=== PATIENT | male | born 1985 | race Caucasian/White ===

== ENCOUNTER 2016-12-19 10:25 | Inpatient (IN) | payer OTHER, MEDICAID ==
[2016-12-19] VITALS (10 sets, daily range): BP systolic 91–121; BP diastolic 56–82; PULSE 47–80; RESP 12–17; O2SAT 93–99
[~2016-12-19] VITALS: Ht 154.9 cm; Wt 52.5 kg
[~2016-12-19 10:25] MED LIST: DOCU-41 PO; FELB400T2 PO; Glycopyrrolate 0.2 MG/ML 1mL Inj ONE; Ketamine 10 mg/mL 20 mL Inj ONE; LORA-302 PO; MULT-321 PO; POLY17PO6 PO; Propofol 10,000 mCg/mL 20 mL Inj ONE; RANI75TA21 PO; TOPI200T17 PO; fentaNYL-PF 50 mCg/mL 2 mL Inj ONE
[2016-12-19] MEDS ORDERED: LEVE500T22 PO ×2 (10:50→12:07)
[2016-12-19] MEDS ORDERED: CLOB10TA PO ×2 (10:51→12:07)
[2016-12-19] MEDS ORDERED: LAMO25TA PO ×2 (10:52→12:07)
--- NOTE | 2016-12-19 10:57 | ED.REPORT ---
HPI-General Illness Date of Service Dec 19, 2016 ED Provider: Jean Mac MD Patient is a 31 year old male with a hx of Downs syndrome, seizures, and gastric ulcers who presents to the ED via EMS complaining of vomiting onset last night. Per mother his vomit had a red tinge to it. He has been unable to keep down his seizure medications including his 4 night-time doses last night. His medication was re-dosed last night and vomited again. Mother reports that he commonly has episodes of dysphagia the required endoscopies and is worried that when he was eating last night he got something stuck in his throat. Per mother, he is not experiencing fever, trouble breathing, or any other symptoms. Nursing Notes Stated Complaint: ONGOING VOMITING Chief Complaint: Male Abdominal Pain Nursing Notes Reviewed: Yes Allergies: Coded Allergies: metoclopramide (Unverified Allergy, Severe, dystonia, 12/19/16) promethazine (Unverified Allergy, Severe, dystonia, 12/19/16) valproic acid (Unverified Allergy, Severe, thrombocytopenia, 12/19/16) Uncoded Allergies: PLASTIC MEDICAL TAPE (Allergy, Severe, Hives, 09/09/14) SULFA (Adverse Reaction, Intermediate, HIVES WITH HEADS, 01/19/09) Sulfa (Adverse Reaction, Intermediate, HIVES WITH HEADS, 11/04/03) Scheduled Clobazam (Onfi) 10 Mg Tablet 10 MG PO BID Clobazam (Onfi) 10 Mg Tablet 10 MG PO am Lamotrigine (Lamotrigine) 25 Mg Tablet 25 MG PO BID Lamotrigine (Lamotrigine) 25 Mg Tablet 50 MG PO BID Levetiracetam ER (Keppra XR) 500 Mg Tablet 1,500 MG PO BID Levetiracetam ER (Keppra XR) 500 Mg Tablet 1,500 MG PO BID Multivit with Calcium,Iron,Min (Maximum Daily Multivitamin) 1 Each Tablet 1 EACH PO daily Polyethylene Glycol 3350 (Miralax) 17 Gm Powd.pack 17 GM PO every other day Topiramate (Topamax) 200 Mg Tablet 200 MG PO BID Topiramate (Topiramate) 200 Mg Tablet 200 MG PO BID Scheduled PRN Docusate Sodium (Colace) 100 Mg Capsule 100 MG PO every other day PRN PRN For Constipation General Time Seen by MD: 10:52 Chief Complaint Vomiting Hx Obtained From: Other family... (Mother) Arrived By: Ambulance Sudden in Onset?: Yes Onset Occurred: 5 - 8 hours ago Symptom Duration: Since onset Past Medical History Past Medical History Notes: Neurologist: Dr. 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 Physical Exam Vital Signs Vital Signs Date Time Temp Pulse Resp B/P Pulse Ox O2 Delivery O2 Flow Rate FiO2 12/19/16 13:15 50 12 91/56 99 Room Air 12/19/16 10:33 36.8 80 15 120/80 98 Room Air Initial VS: Reviewed, Vital signs normal Head / Eyes: Atraumatic, Normocephalic Neck: Full range of motion Respiratory: No respiratory distress Cardiovascular: Regular rate & rhythm Abdomen / GI: Soft, Non-tender Skin: Warm, Dry Psychiatric: Mood/affect normal, Behavior normal General/Constitutional: Awake, Alert Neurologic: No motor deficits Per mother, pt is at baseline Interpretation & Diagnostics Lab Results Interpretation Result Diagram: 12/19/16 1135 12/19/16 1216 Test 12/19/16 11:35 12/19/16 12:16 White Blood Count 8.4th/mm3 (3.8-10.1) Red Blood Count 4.77mil/mm3 (4.40-5.80) Hemoglobin 15.7g/dL (13.8-17.2) Hematocrit 44.7% (41.0-50.0) Mean Corpuscular Volume 93.7fL (81-100) Mean Corpuscular Hemoglobin 32.9pg (27.0-35.0) Mean Corpuscular Hemoglobin Concent 35.1% (32.0-37.0) Red Cell Distribution Width 13.1% (12.3-15.4) Platelet Count 116bil/L (150-400) Neutrophils (%) (Auto) 78.1% (40-74) Lymphocytes (%) (Auto) 13.1% (14-46) Monocytes (%) (Auto) 6.1% (4-12) Eosinophils (%) (Auto) 2.3% (0-5) Basophils (%) (Auto) 0.2% (0-3) Sodium Level 142mEq/L (134-144) Potassium Level 4.1mEq/L (3.5-5.2) Chloride Level 105mEq/L (97-108) Carbon Dioxide Level 27mmol/L (18-29) Blood Urea Nitrogen 23mg/dL (6-20) Creatinine 0.85mg/dL (0.76-1.27) Estimat Glomerular Filtration Rate 113mL/min (>59) Glucose Level 98mg/dL (60-99) Calcium Level 8.9mg/dL (8.5-10.1) Magnesium Level 2.2mg/dL (1.6-2.6) Total Bilirubin 0.3mg/dL (0.0-1.2) Aspartate Amino Transf (AST/SGOT) 25U/L (0-50) Alanine Aminotransferase (ALT/SGPT) 49U/L (0-44) Alkaline Phosphatase 132U/L (25-150) Total Protein 6.4g/dL (6.4-8.4) Albumin 4.2g/dL (3.4-5.0) Lipase 22U/L (13-60) X-Ray Chest Interpretation Chest Xray Interpretation: IMPRESSION: Sternotomy wires, heart size at the upper limits, no pneumonia seen, no aspiration identified. No CHF found. Dictated by: Lorenzo Barnes M.D. on 12/19/2016 at 13:08 Approved by: Lorenzo Barnes M.D. on 12/19/2016 at 13:09 View: Portable, 1 view Interpretation / Wet Read by: Interpret - Radiologist Re-Eval/Medical Decision Time of Eval: 11:11 Re-Evaluation/Progress Note: Rechecked pt. Discussed plan for medication administration and consult with [place]. Mother asked about possibility of NG tube. All questions addressed at this time. Time of Eval: 13:34 Re-Evaluation/Progress Note: Rechecked pt. Discussed plan for enoscopy. Patient's mother understands and agrees with plan. All questions addressed at this time. Consultation #1: Call Returned at: 11:07 Note: Discussed pt's case with Dr. Rashi ramos/ [facility] neurology. Onfi can be crushed and put under his tongue. Keppra can be given IV. Consultation #2: Referral / Consult Name: Hunter Swanson MD Call Returned at: 13:24 Under Cutter: Will see patient, Agrees with eval, Agrees with plan Note: Discussed pt's case with GI. Will see pt and scope him. Counseled Regarding: Diagnosis, Lab results, Other (Need for EGD ) Discharge & Departure Primary Impression: Dysphagia Dysphagia type: unspecified Qualified Code: R13.10 - Dysphagia, unspecified Additional Impressions: Vomiting Vomiting type: unspecified Vomiting Intractability: unspecified Nausea presence: unspecified Qualified Code: R11.10 - Vomiting, unspecified Epilepsy Epilepsy type: unspecified Intractability: not intractable Status epilepticus: without status epilepticus Qualified Code: G40.909 - Epilepsy, unspecified, not intractable, without status epilepticus Disposition: ADMITTED TO HOSPITAL Discharge Condition All VS Reviewed: Yes Condition: Stable Referrals: Betzy Gilliam MD (PCP) Scribe Attestation Portions of this note were transcribed by Christopher Quinteros. I, Dr. Mac personally performed the history, physical exam and medical decision-making; I reviewed and confirmed the accuracy of the information in the transcribed note. Signed by: Naomi Agiular, 12/19/16 copies to: Betzy Gilliam MD, Kirk H MD Dec 19, 2016 10:57 CHRISTOPHER QUINTEROS Dec 19, 2016 11:23
[2016-12-19] MEDS ORDERED: levETIRAcetam Inj 1,000 MG in IV Premix 1 EACH IV ONE (11:15)
[2016-12-19 11:59] LABS: BASOPHILS % (AUTO) 0.2 % (0-3); EOSINOPHILS % (AUTO) 2.3 % (0-5); MONOCYTES % (AUTO) 6.1 % (4-12); Mean Corpuscular Hemoglobin 32.9 pg (27.0-35.0); Mean Corpuscular Volume 93.7 fL (81-100); NEUTROPHILS % (AUTO) 78.1 % (40-74); Platelet Count 116 bil/L (150-400)
[2016-12-19] MEDS ORDERED: TOPI200T7 PO (12:07)
--- NOTE | 2016-12-19 13:12 | DRSVH ---
PROCEDURE: X-RAY CHEST ONE VIEW, PORTABLE ([id number]) INDICATIONS: vomiting TECHNIQUE: One view of the chest was acquired. COMPARISON: [facility], CR, CHEST 2VW, 03/21/2008, 13:26. [facility], RG, C HEST 2VW, 03/17/2004, 16:59. FINDINGS: Surgical changes and devices: Surgical sternotomy wires appear present over the midline of the chest, previously present in this young patient. Lungs and pleura: No pleural effusions or pneumothorax. Lungs are clear. Mediastinum: Mediastinal contours appear normal. Heart size is mildly enlarged. Bones and chest wall: No suspicious bony lesions. Overlying soft tissues appear unremarkable. IMPRESSION: Sternotomy wires, heart size at the upper limits, no pneumonia seen, no aspiration identi fied. No CHF found. Dictated by: Lorenzo Barnes M.D. on 12/19/2016 at 13:08 Approved by: Lorenzo Barnes M.D. on 12/19/2016 at 13:09
[2016-12-19 13:14] LABS: Magnesium 2.2 mg/dL (1.6-2.6)
--- NOTE | 2016-12-19 14:59 | PCM.HPMED ---
Subjective Date of Service Dec 19, 2016 Primary Provider: Admitting Physician: Primary Care Physician: Betzy Gilliam MD Attending Physician: Chief Complaint: Vomiting History of Present Illness: Gastroenterology H&P. Mr. Bong Alonso is a 31 year old gentleman with a past medical history significant for Downs syndrome, Epilepsy, Chronic constipation, report of prior gastric ulcers via EGD in 2013 at [facility] in [place], ASD repair in 2006, Esophageal dysmotility with recurrent episodes of self resolving food impactions , who presents to the ED via EMS, accompanied by his mother with complaints of vomiting that started roughly around 930 pm 12/18/16. She states patient received 630 medications, ate a late dinner around 9pm. Shortly thereafter patient showed his typical signs of dysphagia. Patients mother was advised to re -administer evening medications, give warm coca-cola, which she did and patient vomited once again. Patient was stable overnight, but vomited once again with morning orange juice and medications. They have a long history of epilepsy and 5 prior events of status epilepticus, and recurrent esophageal impactions and for fear of recurrence of status, they decided to come the the ED. Patients mother reports patient is non-verbal, doesn't chew food well and also has esophageal dysmotility which has lead to a very long history of roughly 3-4 times per month of "food getting caught" and the normal sequela of hiccups, gagging, coughing then vomit, or if noticed soon enough, administration of warm coca-cola, which the patients mother states is "always effective." Patients mother is very concerned that Bong may go into Status epilepticus if he doesn't receive the anti-seizure medications. Per mother his most recent vomit had bright red blood streaks. Per mother, he is not experiencing fever, trouble breathing, oral edema, diarrhea, or been in contact with sick contacts. Review of Systems: A comprehensive review of systems was conducted with the patient's mother and found to be negative except as above in the History of Present Illness. Allergies Coded Allergies: metoclopramide (Unverified Allergy, Severe, dystonia, 12/19/16) promethazine (Unverified Allergy, Severe, dystonia, 12/19/16) valproic acid (Unverified Allergy, Severe, thrombocytopenia, 12/19/16) Uncoded Allergies: PLASTIC MEDICAL TAPE (Allergy, Severe, Hives, 09/09/14) SULFA (Adverse Reaction, Intermediate, HIVES WITH HEADS, 01/19/09) Sulfa (Adverse Reaction, Intermediate, HIVES WITH HEADS, 11/04/03) Home Medications Scheduled Clobazam (Onfi) 10 Mg Tablet 10 MG PO BID Clobazam (Onfi) 10 Mg Tablet 10 MG PO am Lamotrigine (Lamotrigine) 25 Mg Tablet 25 MG PO BID Lamotrigine (Lamotrigine) 25 Mg Tablet 50 MG PO BID Levetiracetam ER (Keppra XR) 500 Mg Tablet 1,500 MG PO BID Levetiracetam ER (Keppra XR) 500 Mg Tablet 1,500 MG PO BID Multivit with Calcium,Iron,Min (Maximum Daily Multivitamin) 1 Each Tablet 1 EACH PO daily Polyethylene Glycol 3350 (Miralax) 17 Gm Powd.pack 17 GM PO every other day Topiramate (Topamax) 200 Mg Tablet 200 MG PO BID Topiramate (Topiramate) 200 Mg Tablet 200 MG PO BID Scheduled PRN Docusate Sodium (Colace) 100 Mg Capsule 100 MG PO every other day PRN PRN For Constipation PMH Down syndrome Epilepsy Status Epilepticus x5 Esophageal dysmotility Chronic constipation Surgical History ASD repair 1997 Family History mother - Severe GERD Social History Hx Alcohol Use: No Hx Substance Use: No Hx Tobacco Use: No Exam Vital Signs Vital Sign - Last Date Time Temp Pulse Resp B/P Pulse Ox O2 Delivery O2 Flow Rate FiO2 12/19/16 13:15 50 12 91/56 99 Room Air 12/19/16 10:33 36.8 Exam General: <iddle aged gentleman, sitting in bed, with features of Down syndrome. No acute distress, well-developed, well-nourished, HEENT: Normocephalic, atraumatic. External ears without defect. Pupils equal, round, and reactive to light and accommodation. Anicteric sclerae, moist conjunctivae, and no lid lag. Oropharynx free of erythema and cobble stoning with moist mucosa. Glossal protrusion, with very mild signs of salivation. No signs of angioedema. Neck: Supple with full range of motion. No jugular venous distension. No bruits. No lymphadenopathy or thyromegaly. Cardiovascular: Regular rate and rhythm with slight flow murmur, no rubs, or gallops appreciated Pulmonary: Clear to auscultation bilaterally with no crackles, wheezes, or rhonchi. Normal respiratory effort with no use of accessory muscles. Abdomen: Bowel tones present. Soft, nontender, nondistended. No hepatosplenomegaly or masses appreciated. Extremities: No clubbing, cyanosis, edema, or lymphadenopathy appreciated. Skin: Normal temperature, turgor, and texture; no rash, ulcers, or subcutaneous nodules appreciated. Neurological: Unable to determine due to patients mental conditions. Psychiatric: Unable to determine due to patients mental conditions. Lab and Diagnostics Result Diagram: 12/19/16 1135 12/19/16 1216 Assessment & Plan Mr. Bong Alonso is a 31 year old gentleman with a past medical history significant for Downs syndrome, Epilepsy, Chronic constipation, report of prior gastric ulcers via EGD in 2013 at [facility], ASD repair in 2006, Esophageal dysmotility with recurrent episodes of self resolving food impactions , who presents to the ED via EMS with concerns of non-resolving esophageal impaction and concerns of under-dosing of anti-seizure medications. - High likelihood of esophageal impaction, Plan for EGD and dis-impaction. Pain Evaluation: Adequate Pain Control Attending Statement Patient seen and examined. Agree with assessment and plan as described by Dr Smith. MARKIE SMITH DO Dec 19, 2016 14:59 Hunter Swanson MD Dec 19, 2016 21:50 MARKIE SMITH DO Dec 19, 2016 14:59
[2016-12-19] MEDS ORDERED: Dexamethasone 4 mg/mL Inj ONE (15:00)
[2016-12-19] MEDS ORDERED: Glycopyrrolate 0.2 MG/ML 1mL Inj ONE (15:00)
[2016-12-19] MEDS ORDERED: Atropine 0.4 mg/mL Inj ONE (15:00)
[2016-12-19] MEDS ORDERED: EPHEDrine/NS 5 mg/mL 5 mL Syringe ONE (15:00)
[2016-12-19] MEDS ORDERED: Neostigmine 1 mg/mL 10 mL Inj ONE (15:00)
[2016-12-19] MEDS ORDERED: Ondansetron 2 mg/mL 2 mL Inj ONE (15:00)
[2016-12-19] MEDS ORDERED: Rocuronium 10 mg/mL 5 mL Inj ONE (15:00)
[2016-12-19] MEDS ORDERED: Lactated Ringer's 1,000 ML IV ONE ×4 (16:20→21:45)
--- NOTE | 2016-12-19 19:21 | DRSVH ---
PROCEDURE: X-RAY KUB ([id number]) INDICATIONS: foregin body, TECHNIQUE: One view of the abdomen acquired. COMPARISON: [facility], , CHEST 1 VIEW, 06/20/2016, 18:23. FINDINGS: Surgical changes and devices: None. Bowel: The stomach, small bowel and colon are diffusely gas-filled without luz dilatation to sugges t obstruction or ileus. Soft tissues: No suspicious abdominal calcifications. Visualized solid organ contours appear normal in size. No unexpected radiopaque foreign bodies. Bones: No suspicious bony lesions. IMPRESSION: 1. No unexpected radiopaque foreign bodies. 2. Diffuse gaseous distention of the stomach and the bowel without findings to suggest ileus or obstr uction. Dictated by: Cele June M.D. on 12/19/2016 at 19:17 Approved by: Cele June M.D. on 12/19/2016 at 19:19
[2016-12-19] MEDS ORDERED: Bupivacaine-MPF 0.5% 30 mL Inj INFILTRATE ONE (19:30)
[2016-12-19] MEDS ORDERED: Lactated Ringer's 1,000 ML IV SCH (19:50)
[2016-12-19] MEDS ORDERED: Lactated Ringer's 500 ML IV PRN (19:50)
[2016-12-19] MEDS ORDERED: Ondansetron 2 mg/mL 2 mL Inj IVPUSH PRN ×2 (19:50→21:10)
[2016-12-19] MEDS ORDERED: Phenylephrine 10,000 mCg/mL Inj IVPUSH PRN (19:50)
[2016-12-19] MEDS ORDERED: fentaNYL-PF 50 mCg/mL 2 mL Inj IVPUSH PRN (19:50)
[2016-12-19] MEDS ORDERED: HYDROmorphone 1 mg/mL Inj IVPUSH PRN (19:50)
[2016-12-19] MEDS ORDERED: EPHEDrine Sulfate 50 mg/mL Inj IVPUSH PRN (19:50)
--- NOTE | 2016-12-19 19:50 | PCM.HPANE ---
Patient Data Date of Service: Dec 19, 2016 Surgeon Admitting Provider: Attending Provider:Hunter Swanson MD Primary Care Physician:Steven Jones MD Other Provider: Reason for Visit Ongoing Vomiting Ht/WT & BMI Height (Feet): 5 Height (Inches): 11 Weight (Kilograms): 51.71 Body Mass Index 22.00 Allergies Coded Allergies: metoclopramide (Unverified Allergy, Severe, dystonia, 12/19/16) promethazine (Unverified Allergy, Severe, dystonia, 12/19/16) valproic acid (Unverified Allergy, Severe, thrombocytopenia, 12/19/16) Uncoded Allergies: PLASTIC MEDICAL TAPE (Allergy, Severe, Hives, 09/09/14) SULFA (Adverse Reaction, Intermediate, HIVES WITH HEADS, 01/19/09) Sulfa (Adverse Reaction, Intermediate, HIVES WITH HEADS, 11/04/03) Past Anesthesia History Anesthesia History: Denies:: Anesthesia Reactions, Fam Anesthesia Reaction, Fam Malignant Hypertherm, Malignant Hyperthermia Diabetes History Hx Diabetes?: No MRSA MRSA: No Medications Hypertension Medication: No Home Meds Incl Beta Kaushal: No Reported Medications Topiramate 200 Mg [id number] Mg PO BID Ref 0 12/19/16 Clobazam (Onfi)10 Mg Dsgnae91 Mg PO am seizures 12/19/16 Lamotrigine 25 Mg Sofrou73 Mg PO BID Ref 0 12/19/16 Levetiracetam ER (Keppra XR)500 Mg Tablet1,500 Mg PO BID 12/19/16 Lamotrigine 25 Mg Xaorth26 Mg PO BID Ref 0 12/19/16 Clobazam (Onfi)10 Mg Dshewx12 Mg PO BID 12/19/16 Levetiracetam ER (Keppra XR)500 Mg Tablet1,500 Mg PO BID 12/19/16 Polyethylene Glycol 3350 (Miralax)17 Gm Powd.pack17 Gm PO every other day 09/09/14 Docusate Sodium (Colace)100 Mg Goleils222 Mg PO every other day PRN For Constipation 30 Days Ref 0 09/09/14 Multivit with Calcium,Iron,Min (Maximum Daily Multivitamin)1 Each Tablet1 Each PO daily 09/09/14 Topiramate (Topamax)200 Mg Imrhes630 Mg PO BID 30 Days Ref 0 6/17/15 Discontinued Reported Medications Felbamate 400 Mg Mxzife442 Mg PO DAILY 09/09/14 Ranitidine (Zantac OTC)75 Mg Noewur56 Mg PO DAILY #1 PKG Ref 0 09/09/14 Lorazepam (Ativan)0.5 Mg Tablet0.5 Mg PO BID PRN For Anxiety Ref 0 09/09/14 History History of ENT Problems?: Yes HEENT History: Positive for:: Dysphagia Denture Type: None Teeth Condition: Within Normal Limits Hx of Heart Problems?: Yes Cardiovascular History: Denies:: Congestive Heart Failure Hypertension Other Cardiac History: ASD REPAIR Hx of Respiratory Problem?: Yes Respiratory History: Positive for:: Pneumonia Denies:: Tuberculosis Hx Neurologic Problems?: Yes Neurological History: Positive for:: Seizures Denies:: CVA Hx of GI Problems?: Yes Hx of Problems?: No Male Hx: Denies:: Prostate Problems Skin History: Denies:: History Skin Disorders? Hx Musculoskeletal Problems?: Yes Hx of Psycho/Social Problems?: No Hx Surgeries?: Yes (ASD REPAIR) Hx Any Other Health Problems?: Yes Other History: Positive for:: Hospitalization Denies:: Cancer History Blood Transfusions: Denies:: Blood Transfusions Hx Diabetes: No Hx Alcohol Use: NoHx Substance Use: NoHave You Smoked inLast 12 mo: No Stop/Bang Treated for Sleep Apnea?: No Do You Have a CPAP Machine?: No S-Snoring: Do You Snore Loudly: Yes T-Tired: feel tired, fatigued: No O-Obsered: Observed not breath: Yes P-Blood Pressure: treated: No B- Body Mass Index > 35 kg/m2: No A- Age over 50: No N- Neck Large Circumference: No G- Gender Male: Yes IRON Total Score: 3 IRON Risk Assessment: Low Risk, <3 Yes Risk Assessment Category Category 1A: Patient has history of documented sleep apnea, and HAS NOT received any narcotic, sedative or anesthesia administration during this stay. Category 1B: Patient has history of documented sleep apnea, and HAS received any narcotic , sedative or anesthesia administration during this stay Category 2: Patient has SUSPECTED Obstructive Sleep Apnea, and HAS received any narcotic , sedative or anesthesia administration during this stay. Category 3: Patient has SUSPECTED Obstructive Sleep Apnea and HAS NOT received narcotic, sedative or anesthesia administration during this stay. Category 4: Outpatient in Procedural Areas with known sleep apnea or who screen positive for High Risk via the STOP/BANG questionnaire. Exam Exam Vital Signs Vital Signs Date Time Temp Pulse Resp B/P Pulse Ox O2 Delivery O2 Flow Rate FiO2 12/19/16 16:05 47 16 107/62 97 Room Air 12/19/16 13:15 50 12 91/56 99 Room Air General Appearance: Alert, Other HEENT/AIRWAY: MP 1 Lungs: Clear to Auscultation Heart: Exam Unremarkable Additional Information large tongue. developmental delay Meds/Labs/Diagnostics Admission Meds Current Medications Levetiracetam 1000 mg/Premix 100 ml @ 400 mls/hr ONCE ONCE IV Last administered on 12/19/16 11:48; Start 12/19/16 at 11:15; Stop 12/19/16 at 11:29 ; Status DC Lactated Ringer's (Lr) 1,000 ml @ ud STK-MED ONCE IV Last administered on 12/19 16:20; Start 12/19/16 at 16:20; Stop 12/19/16 at 16:21; Status DC Labs Test 12/19/16 11:35 12/19/16 12:16 White Blood Count 8.4th/mm3 (3.8-10.1) Red Blood Count 4.77mil/mm3 (4.40-5.80) Hemoglobin 15.7g/dL (13.8-17.2) Hematocrit 44.7% (41.0-50.0) Mean Corpuscular Volume 93.7fL (81-100) Mean Corpuscular Hemoglobin 32.9pg (27.0-35.0) Mean Corpuscular Hemoglobin Concent 35.1% (32.0-37.0) Red Cell Distribution Width 13.1% (12.3-15.4) Platelet Count 116bil/L (150-400) Neutrophils (%) (Auto) 78.1% (40-74) Lymphocytes (%) (Auto) 13.1% (14-46) Monocytes (%) (Auto) 6.1% (4-12) Eosinophils (%) (Auto) 2.3% (0-5) Basophils (%) (Auto) 0.2% (0-3) Sodium Level 142mEq/L (134-144) Potassium Level 4.1mEq/L (3.5-5.2) Chloride Level 105mEq/L (97-108) Carbon Dioxide Level 27mmol/L (18-29) Blood Urea Nitrogen 23mg/dL (6-20) Creatinine 0.85mg/dL (0.76-1.27) Estimat Glomerular Filtration Rate 113mL/min (>59) Glucose Level 98mg/dL (60-99) Calcium Level 8.9mg/dL (8.5-10.1) Magnesium Level 2.2mg/dL (1.6-2.6) Total Bilirubin 0.3mg/dL (0.0-1.2) Aspartate Amino Transf (AST/SGOT) 25U/L (0-50) Alanine Aminotransferase (ALT/SGPT) 49U/L (0-44) Alkaline Phosphatase 132U/L (25-150) Total Protein 6.4g/dL (6.4-8.4) Albumin 4.2g/dL (3.4-5.0) Lipase 22U/L (13-60) Plan Impression Patient chart reviewed, patient interviewed and anesthestic plan with risks, benefits, and alternatives discussed, and informed consent obtained. NPO per Anesth. Guidelines: YesNo ASA Physical Status: ASA2 Plus Emergency Anesthetic Plan: GA Bene/Risks/Altern/Consents: Yes HP Complete Prior to Induction: Yes Gerardo Abreu MD Dec 19, 2016 19:49
--- NOTE | 2016-12-19 19:59 | ENDO ---
[address] [address] ENDOSCOPY PROCEDURE PATIENT: AFTAB MORALES : 1985 MR#: [id number] ADMIT: 12/19/2016 JOB ID: [id number] PRIMARY CARE PHYSICIAN: Steven Jones MD PROCEDURE: Esophagogastroduodenoscopy with foreign body removal, overtube placement, and distal esophageal dilatation. EQUIPMENT: GIF H 180 J. SEDATION: Monitored anesthesia as provided by Gerardo Abreu MD. COMPLICATIONS: None. INDICATIONS: This is a 31-year-old male with significant developmental delay, nonverbal, whose mom thinks suspects underlying pica. He has had challenges with foreign bodies numerous times over the years. Of late he has not been able to keep down any of his pills and we had suspicion that there was possibly a retained foreign body in the esophagus. EGD was therefore pursued. PROCEDURE INFORMATION: After the risks and benefits were explained to the patient's mom, verbal and written consent were obtained. The patient was placed into the left lateral decubitus position. Sedation was achieved. The scope was introduced into the mouth through the bite block and advanced into the esophagus. We encountered a large foreign body at about 30 cm from the incisors. The decision was made to back out and use an over tube to try and get all of this out. A standard Guardus overtube was successfully placed in the distal esophagus. We attempted to grasp this with the Haney net but it was simply too large. We used a standard polypectomy snare and, with several attempts at extracting this, we were finally able to bring up almost the entire piece by way of the overtube. There was an approximately 10-12 cm section of plastic and paper towel, along with some food debris, that was removed as cylindrical foreign body. We then were able to advance the scope down into the stomach, only to discover a much larger foreign body in the antrum. We shifted this out of the way using the snare. I passed the scope into the duodenum and I did not see any debris at this depth. Retroflexed views of the LES were unremarkable. We considered all of our options with this large irregular foreign body. The snare was not able to cut through this. We could not tell if this was tape with other more metallic substances within it or whether this was a plastic bag. However, with the snare fully deployed, it would not cut through and in some sections would not even bend any of the material. We considered using the rubber davenport to try and protect the esophagus. I passed the rubber davenport all the way down but we could not advance this through the mildly stenotic GE junction. We backed the scope back out and I then used the CRE 12-15 mm balloon. I did not really appreciate any obvious mucosal rent, nor any major dilatation effect. We once again could not advance the davenport through the GE junction. I up-sized to a 15-18 mm balloon and starting at 16.5 we dilated up to 18. After the balloon was deflated there was a considerable rent of approximately a cm in the distal esophagus through the GE junction. There was some brief moderate bleeding which all fairly rapidly spontaneously ceased. Complete hemostasis was evident. However, even with the 18 mm dilatation effect, it did not yield to the davenport covering the tip of the endoscope and I did not feel like I could safely advance it through. We therefore abandoned this and called the surgeon. Dr. Carpenter was kind enough to come up and visualize our clinical problem and he agreed that it looks like the patient needs to have a surgery to remove this rather larger irregular foreign body from the stomach. We thereafter removed the endoscope, after deflating the stomach. The patient tolerated the procedure quite well. It should be noted that when trying to place the davenport we had already removed the overtube. FINDINGS: 1. Duodenum: No retained foreign body. No pathology appreciated. Normal bile-stained mucosa. 2. Stomach: Large, perhaps 12 x 3 cm, irregular, slightly malleable, slightly firm foreign body retained within the stomach. This could not be safely removed. Even though we suspected at first that it was a plastic bag versus a role of balled up tape, it simply did not flex like one would expect with the snare, and I was quite concerned we would cause considerable esophageal trauma I attempted to drag this up forcefully all the way through per os. 3. Esophagus: There was mild to moderate GE junction stenosis, but no neoplastic effects evident. The foreign body in the esophagus was successfully removed by way of the overtube as described above. This appeared to be a combination of some espinal paper towel plus plastic and some food debris. This was more than a 10 cm cylindrical, packed in foreign body. See above. The mild to moderate stenosis at the GE junction was dilated up to 18 mm and there was a small rent at the GE junction with self-limited bleeding. There was some mild mucosal trauma induced by the overtube at the level of the UES but no sustained bleeding or significant laceration. ENDOSCOPIC DIAGNOSES: 1. Esophageal foreign body status post endoscopic relief. 2. Mild GEJ stenosis status post balloon dilatation to 18 mm. 3. Retained gastric foreign body. RECOMMENDATIONS: 1. Surgical consultation with Dr. Carpenter for therapeutic gastrostomy to remove this irregular foreign body from the stomach. 2. The patient will almost certainly need a medicine consult during this hospitalization considering the complexities of his antiseizure medication and the n.p.o. status that is going to result from surgery. 3. From a gastroenterology standpoint, the patient can start to advance his diet through liquids and smoothie to well chewed food, or at least whenever his baseline status allows, at the discretion of his surgical service. Please note: This was a complex procedure and procedure time was roughly 90 minutes or so.
[2016-12-19] MEDS ORDERED: HYDROmorphone 0.5 mg/0.5 mL iSecure Syringe IV PRN (21:10)
[2016-12-19] MEDS ORDERED: diphenhydrAMINE 25 mg Capsule PO PRN (21:10)
[2016-12-19] MEDS ORDERED: lamoTRIgine 25 mg Tablet PO SCH ×2 (21:15)
--- NOTE | 2016-12-19 21:29 | HP ---
[address] [address] HISTORY AND PHYSICAL PATIENT: AFTAB MORALES : 1985 MR#: [id number] ADMIT: 12/19/2016 JOB ID: [id number] DATE: 12/19/2016 CHIEF COMPLAINT/IDENTIFICATION: A 31-year-old male with ingested foreign body. HISTORY OF PRESENT ILLNESS: The patient is seen in the endoscopy suite with Dr. Swanson. History I have obtained is that he has a history of plica and swallowing foreign bodies. He has been vomiting for at least a day and Dr. Swanson has removed a very firm plastic foreign body from the esophagus. There is a residual foreign body in the stomach that appears too large and noncompressible to safely remove from the esophagus. We have had a discussion in the endoscopy suite regarding the best way to approach this, and it would seem a laparoscopic exploration with gastrotomy and foreign body removal is in the patient's best interest. PAST MEDICAL HISTORY: Severe developmental delay. Atrial septal defect status post surgical repair many years ago. History of seizure disorder. MEDICATIONS: 1. Keppra. 2. . 3. Topiramate. 4. Lamotrigine. Doses unknown. ALLERGIES: 1. SULFA. 2. VALPROIC ACID. 3. REGLAN. 4. PROMETHAZINE. 5. SOCIAL HISTORY: Lives with his mom. He says his mother is his durable power of health plan specialist. Mother and sister are present for the discussion. FAMILY HISTORY: Noncontributory. REVIEW OF SYSTEMS: Not obtainable. His baseline is by report is that he is nonverbal, and that his mother "reads him" but that the last time he was in the hospital to have his seizure medications adjusted, he had a very difficult time because it was a new hospital. PHYSICAL EXAMINATION: The patient is seen in the endoscopy suite, sedated. Vital signs recorded in the chart. Heart and lung exam per anesthesia. His abdomen is without surgical scars. LABORATORY DATA: White count is 8.4, hematocrit is 44.7, platelet count is 116. Chemistries are unremarkable except for a BUN of 23 and an ALT of 49. His lipase is 22. IMAGING: We did obtain a KUB that demonstrates what appears to be the foreign body in his stomach, none in the distal small bowel, but he does have a fair amount of small bowel and large bowel gas from his endoscopy. IMPRESSION AND PLAN: After a discussion with Dr. Swanson, we have recommended to the patient's mother that we go to the operating room for planned laparoscopy, gastrotomy with removal of foreign body and closure of the gastrotomy. We discussed the possibility of open surgery and findings of other foreign bodies requiring therapeutic intervention. She agrees to proceed. As the patient was heavily sedated for his endoscopy, Dr. Abreu of Anesthesia moved ahead with intubation as the operating room crew was coming in.
--- NOTE | 2016-12-19 21:34 | PCM.SURGPO ---
Immediate Operative Note Date of Surgery: Dec 19, 2016 Pre Operative Diagnosis Foreign body ingestion Post Operative Diagnosis Intragastric foreign body Procedure 1. Diagnostic laparoscopy 2. Gastrotomy with foreign body retrieval and gastrostomy closure Surgeon and Necktie Turner Surgeon: Arsen Carpenter MD Assistants: Sarah Gibson MD Findings 1. Plastic medical glove entangled into long, hardened bezoar in the gastric fundus Complications There were no periprocedural complications identified. Surgical Specimen Removed: Yes (Plastic glove) Specimen sent to Pathology: Yes Anesthetic Administered: GA Grafts, Implants: None Output, Estimated Blood Loss: 10 Blood Admin during surgery: No Sarah Gibson MD Dec 19, 2016 21:34
--- NOTE | 2016-12-19 21:34 | PCM.ANEP1 ---
Post Anesthesia PACU Phase 1 Assessment Vital Signs Vital Signs Date Time Temp Pulse Resp B/P Pulse Ox O2 Delivery O2 Flow Rate FiO2 12/19/16 16:05 47 16 107/62 97 Room Air Anesthetic Administered: GA Level of Alertness: Sleepy, easy to arouse Pain: No Nausea or Vomiting: No CV Function & Hydration Stable: Yes Airway Device: Oxygen Delivery: Room Air Lungs: Clear to Auscultation PACU Phase 2 Assessment Complications: Yes Follow up Care: N/A Patient Instructions Provided: N/A Gerardo Abreu MD Dec 19, 2016 21:34
--- NOTE | 2016-12-19 21:49 | OP ---
[address] [address] OPERATIVE REPORT PATIENT: AFTAB MORALES : 1985 MR#: [id number] ADMIT: 12/19/2016 JOB ID: [id number] DATE OF SURGERY: 12/19/2016 SURGEON: Arsen Carpenter MD and Dr. Sarah Gibson. PREOPERATIVE DIAGNOSIS(ES): Ingested foreign body. POSTOPERATIVE DIAGNOSIS(ES): Ingested foreign body. PROCEDURE: 1. Laparoscopic exploration with gastrotomy and removal of foreign body. 2. Closure of gastrotomy. INDICATIONS: A 31-year-old male with ingested foreign body. FINDINGS: Ingested foreign body, looks like an old plastic glove. PROCEDURE IN DETAIL: The patient brought to the operating room. General anesthetic had already been administered. Abdomen was prepped and draped in sterile fashion. We elected not to place a Smart catheter. SCDs were placed. The patient received perioperative Ancef. SCOAP protocol was followed. Surgical time-out was performed. We began with A periumbilical Veress needle followed by a 5 mm port and the abdomen was surveyed. There was no free fluid. There was gaseous distention of the small bowel and stomach. Orogastric tube was placed. We placed three additional ports, two for the glue wheel operator and one for liver retractor. On the anterior stomach in the body, we made a longitudinal gastrotomy approximately 3 cm with cautery. We were then able to hold open the stomach and could see the foreign body in the stomach. We removed it with minimal contamination of the stomach area and placed it in a bag and removed this through the right upper quadrant 10 mm incision without any intra-abdominal spillage. There was some contamination around the skin. We now replaced our ports, removed a couple pieces of foreign body and replaced some gel that had been exteriorized from the stomach into the stomach. We then closed the gastrotomy with interrupted 3-0 Vicryl with intracorporeal knot tying. Having satisfied ourselves that we had good primary closure, we then did a 2nd seromuscular layer with running 3-0 Vicryl. We now leak tested via gastrotomy closure and there was no sign of leak. We irrigated out the abdomen. Suctioned out all of our irrigation. Ports were removed and the 10 mm port was closed at the fascial level with interrupted Vicryl followed by subcuticular Monocryl after washing out the wounds. Dry dressings were applied. At the time of this dictation, the patient is awaking from anesthesia with planned admission.
--- NOTE | 2016-12-19 22:30 | PCM.CHPMED ---
Subjective Date of Service: Dec 19, 2016 Provider requesting consult: Arsen Carpenter MD Primary Physician: Admitting Physician: Hunter Swanson MD Primary Care Physician: Steven Jones MD Attending Physician: Hunter Swanson MD Chief Complaint: Chief Complaint: Dysphagia, Ingestion of Foreign Body History of Present Illness: Patient is a 31 y/o male with past medical history of Down Syndrome, Epilepsy, Constipation, Gastric Ulcers, and esophogeal dysmotility. Patient's mother reports that patient was showing his typical signs of dysphagia at around 2100. Patient has previous episodes of dysphagia and difficulty swallowing solid foods around 3-4 times per month. Patient has a history of status epilepticus and receives multiple medications to control his seizures with 5 prior events of status epilepticus. Patient was seen by GI and underwent laparoscopic exploration with gastrotomy and removal of foreign body (likely old plastic glove) and closure of gastrotomy. Surgery performed by Dr. Carpenter and Dr. Gibson. GI consult for medical management of home medications. Review of Systems: Constitutional: Denies: Chills, Fever, Malaise, Other, Sweats, Weakness Eyes: Denies: Blurred Vision, Conjunctive Inflammation, Double Vision, Eyelid Inflammation, Other, Pain, Redness, Vision Changes ENT: Denies: Dental Problems, Dysphagia, Ear Discharge, Ear Pain, Hoarseness, Membranes Dry, Nasal Congestion, Nose Discharge, Nose Pain, Other, Throat Pain, Tinnitus, Ulcers/Sores in Mouth Neck: Denies: Mass, Other, Pain, Swelling Cardiovascular: Denies: Chest Pain, Edema, Irregular Heart Rate, Other, Palpitations, Rapid Heart Rate, SOB on Exertion, SOB while laying flat Respiratory: Reports: Cough Gastrointestinal: Reports: Abdominal Pain, Vomiting Genitourinary: Denies: Change in Frequency, Decrease Urinary Output, Decrease Urinary Stream, Dysuria, Has burning or pain with urination, Hematuria, Hemodialysis, Incontinence, No burning or pain with urination, Nocturia, Other, Peritoneal Dialysis Reproductive Male: Denies: Erectile Dysfunction, Other, Sexually Active, Venereal Disease Musculoskeletal: Denies: Ankle Pain, Back Pain, Deformity, Knee Pain, Neck Pain , Other, Redness, Shoulder Pain, Swelling, Weakness Skin: Denies: Blisters, Bruising, Dry or Flakiness, Itching, Lesions, Other, Rash, Redness, Ulcers Neurological: Denies: Change in LOC, Change in Speech, Confusion, Difficulty Walking, Dizziness, Double Vision, Drooping Mouth, Incoordination, Localized Weakness, Numbness, Other, Seizures, Somnolence, Tremors, Vertigo Psychologic: Denies: Agitation, Anxiety, Depression, Insomnia, Other, PTSD- Post Traumatic Stress Disorder, Suicidal Thoughts Endocrine: Denies: Abnormal Hair Growth, Blood Glucose Review, Diaphoresis, Excessive Thirst, Intolerant to Cold, Intolerant to Heat, Other, Recent A1C, Urinating Frequently, Weight Gain Hematologic: Denies: Abnormal Bleeding, Bruising, Other Lymphatic: Denies: Adenopathy, Swollen Lymph Node Above Collarbone, Swollen Lymph Nodes in Neck, Tender Lymph Nodes Axillia, Tender Lymph Nodes Groin PMH Past Medical History Down syndrome Epilepsy Status Epilepticus x5 Esophageal dysmotility Chronic constipation Surgical History ASD repair 1996 Home Medications Clobazam (Onfi) 10 Mg Tablet 10 MG PO BID Clobazam (Onfi) 10 Mg Tablet 10 MG PO am Lamotrigine (Lamotrigine) 25 Mg Tablet 25 MG PO BID Lamotrigine (Lamotrigine) 25 Mg Tablet 50 MG PO BID Levetiracetam ER (Keppra XR) 500 Mg Tablet 1,500 MG PO BID Levetiracetam ER (Keppra XR) 500 Mg Tablet 1,500 MG PO BID Multivit with Calcium,Iron,Min (Maximum Daily Multivitamin) 1 Each Tablet 1 EACH PO daily Polyethylene Glycol 3350 (Miralax) 17 Gm Powd.pack 17 GM PO every other day Topiramate (Topamax) 200 Mg Tablet 200 MG PO BID Topiramate (Topiramate) 200 Mg Tablet 200 MG PO BID Allergies: Coded Allergies: metoclopramide (Unverified Allergy, Severe, dystonia, 12/19/16) promethazine (Unverified Allergy, Severe, dystonia, 12/19/16) valproic acid (Unverified Allergy, Severe, thrombocytopenia, 12/19/16) Uncoded Allergies: PLASTIC MEDICAL TAPE (Allergy, Severe, Hives, 09/09/14) SULFA (Adverse Reaction, Intermediate, HIVES WITH HEADS, 01/19/09) Sulfa (Adverse Reaction, Intermediate, HIVES WITH HEADS, 11/04/03) Family History Family History mother - Severe GERD Social History Hx Alcohol Use: NoHx Substance Use: NoHx Tobacco Use: No Exam Vital Signs Vital Sign - Last Date Time Temp Pulse Resp B/P Pulse Ox O2 Delivery O2 Flow Rate FiO2 12/19/16 21:40 36.2 57 13 121/82 96 Room Air General: No Acute Distress, Other (Awake) Head: Normal Eyes: PERRLA, EOMI Mouth: Lips, Mouth Normal Chest & Lungs: Chest Wall Normal, Clear to auscultation & percussion Breasts: Normal Cardiovascular: Exam Unremarkable Abdomen: Non-tender, Non-distended Musculoskeletal: Unremarkable Extremities: No cyanosis/clubbing/edma bilat, Normal bilaterally Neurological: Other (No focal deficit. Unable to cooperate with full neuro exam secondary to patient mental status) Lab and Diagnostics Labs Item Value Date Time Red Blood Count 4.77 mil/mm3 12/19/16 1135 Mean Corpuscular Volume 93.7 fL 12/19/16 1135 Mean Corpuscular Hemoglobin 32.9 pg 12/19/16 1135 Mean Corpuscular Hemoglobin Concent 35.1 % 12/19/16 1135 Red Cell Distribution Width 13.1 % 12/19/16 1135 Neutrophils (%) (Auto) 78.1 % H 12/19/16 1135 Lymphocytes (%) (Auto) 13.1 % L 12/19/16 1135 Monocytes (%) (Auto) 6.1 % 12/19/16 1135 Eosinophils (%) (Auto) 2.3 % 12/19/16 1135 Basophils (%) (Auto) 0.2 % 12/19/16 1135 Estimat Glomerular Filtration Rate 113 mL/min 12/19/16 1216 Calcium Level 8.9 mg/dL 12/19/16 1216 Magnesium Level 2.2 mg/dL 12/19/16 1216 Total Bilirubin 0.3 mg/dL 12/19/16 1216 Aspartate Amino Transf (AST/SGOT) 25 U/L 12/19/16 1216 Alanine Aminotransferase (ALT/SGPT) 49 U/L H 12/19/16 1216 Alkaline Phosphatase 132 U/L 12/19/16 1216 Total Protein 6.4 g/dL 12/19/16 1216 Albumin 4.2 g/dL 12/19/16 1216 Lipase 22 U/L 12/19/16 1216 Result Diagram: 12/19/16 1135 12/19/16 1216 X-Rays, CTs and MRIs PROCEDURE: X-RAY CHEST ONE VIEW, PORTABLE IMPRESSION: Sternotomy wires, heart size at the upper limits, no pneumonia seen , no aspiration identified. No CHF found. Dictated by: Lorenzo Barnes M.D. on 12/19/2016 at 13:08 PROCEDURE: X-RAY KUB IMPRESSION: 1. No unexpected radiopaque foreign bodies. 2. Diffuse gaseous distention of the stomach and the bowel without findings to suggest ileus or obstruction. Dictated by: Cele June M.D. on 12/19/2016 at 19:17 Assessment & Plan Assessment Patient is a 31 y/o male with past medical history of Down Syndrome, Epilepsy, Constipation, Gastric Ulcers, and esophogeal dysmotility. Patient's mother reports that patient was showing his typical signs of dysphagia at around 2100. Patient has previous episodes of dysphagia and difficulty swallowing solid foods around 3-4 times per month. Patient has a history of status epilepticus and receives multiple medications to control his seizures with 5 prior events of status epilepticus. Patient was seen by GI and underwent laparoscopic exploration with gastrotomy and removal of foreign body (likely old plastic glove) and closure of gastrotomy. Surgery performed by Dr. Carpenter and Dr. Gibson. GI consult for medical management of home medications. PLAN Seizure disorder, chronic, present on admission Patient seen and examined, in no acute distress, Will continue home anti- seizure medications tonight. I have replaced the patient's PO Keppra 500mg with an IV dose due to the size of the tablets and the patient's history of esophageal dysmotility. Can transition to full PO after clearance by GI. - Small sips and PO meds for tonight. - Giving night time dose of Keppra, Topomax, Onfi, and Lamotrigine. Spoke with pharmacy to confirm timing and dosing of home medications. Problems: Pain Evaluation: Adequate Pain Control Attending Statement The patient was seen and examined together with house staff on 12/19/2016 and I have added additional information to the note above. Tres Burk DO Dec 19, 2016 22:30 Maira Roque DO Dec 20, 2016 00:41
[2016-12-19] MEDS ORDERED: levETIRAcetam Inj 1,500 MG in Dextrose 5% 100 ML IV SCH (22:55)
[2016-12-19] MEDS: CLOBAZAM 10 MG PO SCH (23:20)
[2016-12-20] MEDS: D5 0.45% NaCl + KCl 20 mEq/L 1,000 ML IV SCH ×3 (00:05→23:49)
[2016-12-20 02:07] VITALS: BP 112/65; PULSE 78; RESP 16; O2SAT 96
--- NOTE | 2016-12-20 04:05 | NUR ---
Arrival/Shift summary Note Patient arrived to the room at 2150 in a gurney, accompanied by mother, and PACU staff. He was restless in bed, sitting up and changing position in bed makes some sounds but no verbal communication. He is alert, does not follow any commands and is unable to communicate if uncomfortable at baseline per mother. All vital signs stable, pt afebrile. Mother very concerned regarding missed seizure medications, MD and pharmacy notified and patient given meds per MD orders. He tolerated taking po meds with water well without any coughing or any signs of difficulty swallowing. Patient did not show any signs of nausea after taking meds. Pt remained in bed all shift, very restless and did not sleep all night. His mother reported that he is not used to being around other people except her and the sister. Patient on 1:1 all shift, seizure pads in place and IV's covered. Lap sites covered with small dressings, small amount of old drainage noted but no new drainage during the shift. Addendum: 12/20/16 at 0635 by JOEL MULTANI RN Pt continued to be restless this morning, and unable to sleep, given Tylenol IV x1. Pt remains awake, looks around and suck on his fingers.
[2016-12-20 06:03] VITALS: BP 101/60; PULSE 77; RESP 16; O2SAT 94
[2016-12-20] MEDS: Acetaminophen IV 1,000 MG in IV Premix 1 EACH IV PRN ×2 (06:28→17:26)
--- NOTE | 2016-12-20 06:31 | PCM.PNSURG ---
Subjective Date of Service: Dec 20, 2016 Date of Service: Dec 20, 2016 Visit Information: Reason for Visit Ongoing Vomiting Surgery/Surgery Date Post-Op Day # 1 Date of Admission: Dec 19, 2016 at 22:05 Hospital Day # 1 Subjective: Recovered well post operatively. Post operative fever to 38.2, not uncommon. Received evening doses of anti seizure medications and reviewed by hospitalist and pharmacy. Tolerating sips with medications. Appeared comfortable overnight per sitter. Patient is non verbal so difficult to know if in pain. Objective Vital Sign- Last 8 Hours Date Time Temp Pulse Resp B/P Pulse Ox O2 Delivery O2 Flow Rate FiO2 12/20/16 06:03 38.2 77 16 101/60 94 Room Air 12/20/16 02:07 36.7 78 16 112/65 96 Room Air Intake and Output- Last 8 Hour 12/20/16 Cumulative From/Thru 06:58 12/19/16 10:33 - 12/20/16 06:09 Intake Total 50 ml 2100 ml Output Total 10 ml Balance 50 ml 2090 ml Intake Oral 50 ml 50 ml IV Total 2050 ml Output Estimated Blood Loss 10 ml # Voids 1 1 # Bowel Movements 0 0 General: Alert, No Acute Distress Lungs: Other (Breathing comfortably on room air) Heart: Regular Rate/Rhythm Abdomen: Benign, Soft, Non-tender, Non-distended, Other (Incisions c/d/i) Catheters: None Result Diagram: 12/19/16 1135 12/19/16 1216 Assessment & Plan Impression 31 yo M with developmental delay and epilepsy with dysphagia and found to have foreign body ingestion s/p endoscopic retrieval of foreign body followed by diagnostic laparoscopy with gastrotomy and foreign body retrieval (hardened medical glove) and gastrotomy closure on 12/19/2016. Problems: Plan Plan to continue home medications, advance diet slowly and discharge when pain well controlled and tolerating full liquid diet. - Clear liquid diet today, if N/V or worsening abdominal pain, make NPO, medications okay - IV tylenol, IV morphine, will transition to oral pain medications later today or tomorrow AM pending tolerance of clear liquid diet - Ambulate TID - SCDs for VTE prophy - Appreciate hospitalist management of seizure medications - Mom and sister available for emotional support and comfort, very invested in Mark's care and he does much better when mom available to care for him at bedside Deal,Sarah B MD Dec 20, 2016 06:31
[2016-12-20] MEDS ORDERED: TOPIRAMATE 200 MG PO SCH (08:30)
[2016-12-20] MEDS ORDERED: LEVETIRACETAM 1500 MG PO SCH ×2 (08:30)
[2016-12-20] MEDS: lamoTRIgine 25 mg Tablet PO SCH ×2 (10:11→18:22)
[2016-12-20] MEDS: CLOBAZAM 10 MG PO SCH ×2 (10:12→21:27)
[2016-12-20] MEDS: levETIRAcetam 500 mg Tablet PO SCH ×2 (10:26→18:22)
[2016-12-20 10:50] VITALS: BP 105/69; PULSE 83; RESP 16; O2SAT 94
--- NOTE | 2016-12-20 12:56 | PCM.PNMED ---
Subjective Date of Service Dec 20, 2016 Subjective Pt tolerating PO meds overnight. Post operative fever to 38.2 Exam Vital Signs Vital Sign - Last Date Time Temp Pulse Resp B/P Pulse Ox O2 Delivery O2 Flow Rate FiO2 12/20/16 10:50 36.8 83 16 105/69 94 Room Air Intake and Output 12/19/16 12/19/16 12/20/16 Cumulative From/Thru 15:00 23:00 07:00 12/19/16 10:33 - 12/20/16 07:00 Intake Total 2050 ml 753 ml 2803 ml Output Total 10 ml 10 ml Balance 2040 ml 753 ml 2793 ml Intake Oral 50 ml 50 ml IV Total 2050 ml 703 ml 2753 ml Output Estimated Blood Loss 10 ml 10 ml # Voids 1 1 # Bowel Movements 0 0 Exam General: No Acute Distress, Other (Awake) Head: Normal Eyes: PERRLA, EOMI Mouth: Lips, Mouth Normal Chest & Lungs: Chest Wall Normal, Clear to auscultation & percussion Breasts: Normal Cardiovascular: Exam Unremarkable Abdomen: Non-tender, Non-distended Musculoskeletal: Unremarkable Extremities: No cyanosis/clubbing/edma bilat, Normal bilaterally Neurological: Other (No focal deficit. Unable to cooperate with full neuro exam secondary to patient mental status) IVs and Medications Medications Reviewed: Medications were reviewed in detail Lab and Diagnostics Result Diagram: 12/19/16 1135 12/19/16 1216 Assessment & Plan Mr. Bong Alonso is a 31 year old gentleman with a past medical history significant for Downs syndrome, Epilepsy, Chronic constipation, report of prior gastric ulcers via EGD in 2013 at [facility], ASD repair in 2006, Esophageal dysmotility with recurrent episodes of self resolving food impactions , who presents to the ED via EMS with concerns of non-resolving esophageal impaction and concerns of under-dosing of anti-seizure medications. Seizure disorder, chronic, present on admission - Diet advanced per GI, tolerating po meds, - Confirmed Sz med doses, resumed po Keppra this AM along with PO Topomax, Onfi , and Lamotrigine. - Would not recommend changes to doses upon discharge. Esophageal dysmotility, chronic, active- This episodes of dysphagia likely due to foreign body which has now been removed. Continue to monitor. Advance diet per primary GI Team. Sourav Rios MD Dec 20, 2016 12:56
--- NOTE | 2016-12-20 14:26 | NUR ---
POST-OP PROGRESS Via FELDT scale patients pain level is 0/10. Tolerating clear liquids. No nausea/emesis noted. PO2 on room air in the high 90's. Sitter is at the bedside for safety. Patients mother is at the bedside assisting with care.
[2016-12-20 15:30] VITALS: BP 102/68; PULSE 79; RESP 16; O2SAT 95
--- NOTE | 2016-12-20 18:36 | NUR ---
MED REC Pts mom is very upset that his seizure medications are not in the computer at the specific times that she has told "6 other nurses." Wrote down specific medications in question and rewrote and spoke with pharmacist Tony regarding medication timing. Please see chart paper order for specific timing of seizure medications. Alyssa SUTTON primary nurse aware. Care conts
--- NOTE | 2016-12-20 19:37 | PCM.PNMED ---
Subjective Date of Service Dec 20, 2016 Subjective Mr. Bong Alonso is a 31 year old gentleman with a past medical history significant for Downs syndrome, Epilepsy, Chronic constipation, report of prior gastric ulcers via EGD in 2013 at [facility], ASD repair in 2006, Esophageal dysmotility with recurrent episodes of self resolving food impactions , who presents to the ED via EMS, accompanied by his mother with complaints of vomiting that started roughly around 930 pm 12/18/16 On EGD patient was found to have a tightly compacted bunch of paper towels wrapped in bits of food which was removed. Subsequently in the antrum of the stomach a foreign body, that looked like hardened plastic was found and determined to be too dangerous to be removed by way of the esophagous. Surgery was consulted, and a gastrotomy was preformed and the object was removed. Today the patient is doing very well. Exam Vital Signs Vital Sign - Last Date Time Temp Pulse Resp B/P Pulse Ox O2 Delivery O2 Flow Rate FiO2 12/20/16 15:30 36.6 79 16 102/68 95 Room Air Intake and Output 12/19/16 12/19/16 12/20/16 Cumulative From/Thru 15:00 23:00 07:00 12/19/16 10:33 - 12/20/16 07:00 Intake Total 2050 ml 753 ml 2803 ml Output Total 10 ml 10 ml Balance 2040 ml 753 ml 2793 ml Intake Oral 50 ml 50 ml IV Total 2050 ml 703 ml 2753 ml Output Estimated Blood Loss 10 ml 10 ml # Voids 1 1 # Bowel Movements 0 0 Exam General: middle aged gentleman, sitting in bed, with features of Down syndrome. No acute distress, well-developed, well-nourished, HEENT: Normocephalic, atraumatic. External ears without defect. Pupils equal, round, and reactive to light and accommodation. Anicteric sclerae, moist conjunctivae, and no lid lag. Oropharynx free of erythema and cobble stoning with moist mucosa. Glossal protrusion,. No signs of angioedema. Neck: Supple with full range of motion. No jugular venous distension. No bruits. No lymphadenopathy or thyromegaly. Cardiovascular: Regular rate and rhythm with slight flow murmur, no rubs, or gallops appreciated Pulmonary: Clear to auscultation bilaterally with no crackles, wheezes, or rhonchi. Normal respiratory effort with no use of accessory muscles. Abdomen: Bowel tones present. Soft, nontender, nondistended. No hepatosplenomegaly or masses appreciated. Extremities: No clubbing, cyanosis, edema, or lymphadenopathy appreciated. Skin: Normal temperature, turgor, and texture; no rash, ulcers, or subcutaneous nodules appreciated. Neurological: Unable to determine due to patients mental conditions. Psychiatric: Unable to determine due to patients mental conditions. IVs and Medications Medications Reviewed: Medications were reviewed in detail Lab and Diagnostics Result Diagram: 12/19/16 1135 12/19/16 1216 Assessment & Plan Mr. Bong Alonso is a 31 year old gentleman with a past medical history significant for Downs syndrome, Epilepsy, Chronic constipation, report of prior gastric ulcers via EGD in 2013 at [facility], ASD repair in 2006, Esophageal dysmotility with recurrent episodes of self resolving food impactions , who presents to the ED via EMS with concerns of non-resolving esophageal impaction and concerns of under-dosing of anti-seizure medications. Distal esophageal obstruction, and Esophageal dysmotility resolved. - Patient is doing very well today. - Advance diet as tolerated. - Gastroenterology will sign off at this time. Seizure disorder, chronic, present on admission - Continue medications as prescribed for home. - Would not recommend changes to doses upon discharge. Attending Statement Patient seen and examined. Agree with assessment and plan as described by Dr Fritz. If repeat blood work is pursued this admission, may be reasonable to get an iron panel to correlate with patient's apparent pica. MARKIE FRITZ DO Dec 20, 2016 19:37 Hunter Swanson MD Dec 20, 2016 22:56
[2016-12-20 20:00] VITALS: BP 98/63; PULSE 85; RESP 16; O2SAT 93
--- NOTE | 2016-12-20 22:39 | NUR ---
2129 Medications Went into room at 5 to administered medication per written order sheet (see MED REC note). While going over medications I was giving (Omfi and Topamax) mother asked if Topamax was extended release. I stated it didn't appear to be but I would check with pharmacy. Mother was clearly upset and stated she would not administer medications until I spoke with pharmacy. Pharmacy confirmed that Topamax was not extended release. Night charge nurse and I told mother pharmacy confirmed it was not extended release and mother was again upset stating he gets Keppra extended release. I informed the mother that we were not giving Keppra we were giving Topamax to which she stated "you have got me all confused", still visibly upset and agitated. Confirmed with mother that patient was to get Topamax and it was not supposed to be extended release. Mother administered Omfi and Topamax. Mother also concerned that patient "felt hot", axillary temperature was taken 36.7, offered PO Tylenol but mother was upset about earlier administration of IV Tylenol and stated "the computer could be wrong on his last dose". No Tylenol was given at that time. Mother continued to be visibly upset and agitated and stated she was going home because she was going to "blow a gasket" and would be in in the morning to give medications because she "didn't trust the hospital with his medications".
[2016-12-21 00:06] VITALS: BP 98/62; PULSE 59; RESP 16; O2SAT 96
[2016-12-21 04:29] VITALS: BP 102/64; PULSE 64; RESP 16; O2SAT 94
--- NOTE | 2016-12-21 06:14 | NUR ---
Pain Medication Patient was moaning and restless, in apparent discomfort. PO Tylenol administered with apple sauce. Following administration patient less restless and stopped moaning, was in no apparent distress. Will continue to monitor.
--- NOTE | 2016-12-21 06:15 | NUR ---
Bladder scan Patient has not voided this shift, bladder scanned with 675ml, patient in no distress. Per day shift, patient voided once with fully wet brief and linens. Will pass on to day shift.
--- NOTE | 2016-12-21 07:16 | PCM.PNSURG ---
Subjective Date of Service: Dec 21, 2016 Date of Service: Dec 21, 2016 Visit Information: Reason for Visit Ongoing Vomiting Surgery/Surgery Date Post-Op Day # 2 Date of Admission: Dec 19, 2016 at 22:05 Hospital Day # 2 Subjective: Slept well overnight. Moaned and looked uncomfortable before bed but resolved after tylenol. Tolerated >2L clear liquids without difficulty. Voiding but no BM yet. Objective Vital Sign- Last 8 Hours Date Time Temp Pulse Resp B/P Pulse Ox O2 Delivery O2 Flow Rate FiO2 12/21/16 04:29 36.6 64 16 102/64 94 Room Air 12/21/16 00:06 36.5 59 16 98/62 96 Room Air Intake and Output- Last 8 Hour 12/21/16 Cumulative From/Thru 07:00 12/19/16 10:33 - 12/21/16 04:23 Intake Total 1627 ml 6460 ml Output Total 10 ml Balance 1627 ml 6450 ml Intake Oral 2080 ml IV Total 1627 ml 4380 ml Output Estimated Blood Loss 10 ml # Voids 8 # Bowel Movements 0 General: Cooperative, No Acute Distress Lungs: Clear to Auscultation, Normal Air Movement Heart: Regular Rate/Rhythm, No Murmurs/Rubs/Gallops Abdomen: Soft, Non-tender, Non-distended, Other (Incision sites are c/d/i.) Result Diagram: 12/19/16 1135 12/19/16 1216 Assessment & Plan Impression 31 yo M with developmental delay and epilepsy with dysphagia and found to have foreign body ingestion s/p endoscopic retrieval of foreign body followed by diagnostic laparoscopy with gastrotomy and foreign body retrieval (hardened medical glove) and gastrotomy closure on 12/19/2016. Problems: Plan Plan to continue home medications, advance diet slowly and discharge when pain well controlled and tolerating full liquid diet. - Full liquid diet as tolerated today - PO tylenol and oxycodone as needed for pain, avoid oxycodone, doing well with just tylenol - Ambulate TID - SCDs for VTE prophy - Appreciate hospitalist management of seizure medications, continue home regimen - Mom and sister available for emotional support and comfort, very invested in Mark's care and he does much better when mom available to care for him at bedside Resuscitation Status: CPR: Attempt Resuscitation Paige,Sarah Haynes MD Dec 21, 2016 07:16
[2016-12-21 07:53] VITALS: BP 102/61; PULSE 56; RESP 16; O2SAT 94
[2016-12-21 08:32] LABS: BASOPHILS % (AUTO) 0.5 % (0-3); EOSINOPHILS % (AUTO) 2.5 % (0-5); MONOCYTES % (AUTO) 10.3 % (4-12); Mean Corpuscular Volume 96.3 fL (81-100); NEUTROPHILS % (AUTO) 67.5 % (40-74); Platelet Count 116 bil/L (150-400)
[2016-12-21 08:56] LABS: Unsaturated Iron Binding 184.2 ug/dL
[2016-12-21] MEDS: lamoTRIgine 25 mg Tablet PO SCH ×2 (09:18→17:47)
[2016-12-21] MEDS: CLOBAZAM 10 MG PO SCH ×2 (09:21→21:36)
[2016-12-21] MEDS: LEVETIRACETAM 500 MG PO SCH ×2 (09:22→17:41)
[2016-12-21] MEDS ORDERED: levETIRAcetam 500 mg Tablet PO SCH (09:30)
[2016-12-21] MEDS ORDERED: Polyethylene Glycol (PEG) 17 Gm Powder PO PRN (11:55)
--- NOTE | 2016-12-21 13:09 | PCM.PNMED ---
Subjective Date of Service Dec 21, 2016 Subjective Pt has tolerated diet so far. No seizure episodes. Exam Vital Signs Vital Sign - Last Date Time Temp Pulse Resp B/P Pulse Ox O2 Delivery O2 Flow Rate FiO2 12/21/16 07:53 36.6 56 16 102/61 94 Room Air Intake and Output 12/20/16 12/20/16 12/21/16 Cumulative From/Thru 15:00 23:00 07:00 12/19/16 10:33 - 12/21/16 04:23 Intake Total 2030 ml 1627 ml 6460 ml Output Total 10 ml Balance 2030 ml 1627 ml 6450 ml Intake Oral 2030 ml 2080 ml IV Total 1627 ml 4380 ml Estimated Blood Loss 10 ml # Voids 7 8 # Bowel Movements 0 0 Exam General: No Acute Distress, Other (Awake) Head: Normal Eyes: PERRLA, EOMI Mouth: Lips, Mouth Normal Chest & Lungs: Chest Wall Normal, Clear to auscultation & percussion Breasts: Normal Cardiovascular: Exam Unremarkable Abdomen: Non-tender, Non-distended Musculoskeletal: Unremarkable Extremities: No cyanosis/clubbing/edma bilat, Normal bilaterally Neurological: Other (No focal deficit. Unable to cooperate with full neuro exam secondary to patient mental status) IVs and Medications Medications Reviewed: Medications were reviewed in detail Lab and Diagnostics Result Diagram: 12/21/16 0825 12/19/16 1216 Assessment & Plan Mr. Bong Alonso is a 31 year old gentleman with a past medical history significant for Downs syndrome, Epilepsy, Chronic constipation, report of prior gastric ulcers via EGD in 2013 at [facility], ASD repair in 2006, Esophageal dysmotility with recurrent episodes of self resolving food impactions , who presents to the ED via EMS with concerns of non-resolving esophageal impaction and concerns of under-dosing of anti-seizure medications. Seizure disorder, chronic, present on admission - Diet advanced per Surgery, tolerating po meds, - Confirmed Sz med doses, Mother has requested to use their own medications which is acceptable. Resumed po Keppra XR (Pt own med), PO Topomax, Onfi (Pt own med), and Lamotrigine. - Would not recommend changes to doses upon discharge. Esophageal dysmotility, chronic, active- This episodes of dysphagia likely due to foreign body which has now been removed. Continue to monitor. Follow up Surgery Recs. Resuscitation Status: CPR: Attempt Resuscitation Sourav Rios MD Dec 21, 2016 13:09
--- NOTE | 2016-12-21 17:09 | NUR ---
GI/ Patient has showed increased interest in food and had strong PO intake today with no signs of discomfort or nausea. Voiding spontaneously in brief and passing gas. Per his mother, she gives him Miralax every other day alternating with Colace once a day on the other day to prevent chronic constipation issues. Dr. Carpenter consulted on this and Miralax given at lunch. He has also been up walking in the halls today and has increased activity.
--- NOTE | 2016-12-21 17:22 | NUR ---
Social Work: Initial Assessment D: EMR reviewed. Please see Initial Assessment linked to this note for more information. Pt is a 31 year old male admitted [place] with a readmit risk score of 2 after ingesting a medical glove per H&P. Pt's insurance is [employer] and [employer] Medicaid. PCP is Steven Jones MD. Pt discussed in multidisciplinary rounds, pt is not medically stable for discharge. Pt is anticipated to discharge on a full liquid diet. SW met with pt and mother at bedside to conduct initial assessment. Pt was alert but is nonverbal and non-participatory in this assessment. SW explained role and wrote phone number on white board. Pt's mother was limited in her willingness to communicate with social work at bedside. Pt lives at home with his mother and sister in [place]. Pt is total assist at baseline. Pt's DDA CM is Froilan Ayon [phone], fax [phone]. Clinical information to be faxed. Pt does not have any caregivers through DDA at this point in time, pt's mother is very protective of pt and stated some resistance to caregivers from DDA. Pt has no DPOA on file, is not appropriate to complete DPOA. No SW orders have been received at this time. Presently, pt is likely to d/c home with mother to transport and continue care. SW will continue to follow. A: Pt who is total assist at baseline, nonverbal, and is not capable of self-care. P: Evolving; Pt anticipated to discharge home with mother. No MD orders received at this time. SW will continue to follow for needs until time of discharge. DAVIS Vasquez Addendum: 12/21/16 at 1722 by TAI DAVIS Amended: Links added.
[2016-12-21 17:27] VITALS: BP 102/65; PULSE 86; RESP 18; O2SAT 96
[2016-12-21 19:30] VITALS: BP 108/68; PULSE 58; RESP 20; O2SAT 100
[2016-12-22 00:07] VITALS: BP 110/69; PULSE 64; RESP 20; O2SAT 97
[2016-12-22 04:08] VITALS: BP 104/67; PULSE 69; RESP 16; O2SAT 94
--- NOTE | 2016-12-22 04:52 | NUR ---
Ambulation Able to ambulate in hallway with assistance. Able to make needs known. Taking PO without evidence of nausea, passing flatus, incontinent. Slight increase in temp in emily, mother requested Tylenol at HS, pt sleeping well later in night. 1:1 assistance in room at all times for safety and care.
--- NOTE | 2016-12-22 09:18 | PCM.PNSURG ---
Subjective Date of Service: Dec 22, 2016 Date of Service: Dec 22, 2016 Visit Information: Reason for Visit Ongoing Vomiting Surgery/Surgery Date Post-Op Day # 3 Status post laparoscopic exploration with gastrotomy, removal of foreign body & closure of gastrotomy Date of Admission: Dec 19, 2016 at 22:05 Hospital Day # Subjective: No acute overnight issues. Pain adequately tolerated with Tylenol. Ambulated yesterday without significant difficulty. Tolerating full liquid diet & voiding regularly. Passing flatus per mother who was available for postoperative care counseling. Medical team is clearing for disposition home. Postop General: No Complaints Gastrointestinal: Good Appetite, Tolerating Oral Feedings, No N/V, Passing Flatus Pain Management: No or Minimal Pain Neurological: Other (developmentally delayed) Postop Activity: Ambulating in Kim Objective Vital Sign- Last 8 Hours Date Time Temp Pulse Resp B/P Pulse Ox O2 Delivery O2 Flow Rate FiO2 12/22/16 06:30 36.6 12/22/16 04:08 36.6 69 16 104/67 94 Room Air Intake and Output- Last 8 Hour 12/22/16 Cumulative From/Thru 07:00 12/19/16 10:33 - 12/22/16 06:48 Intake Total 820 ml 83540 ml Output Total 10 ml Balance 820 ml 32087 ml Intake Oral 820 ml 6573 ml IV Total 4380 ml Output Urine Total 0 ml Estimated Blood Loss 10 ml # Voids 3 16 # Bowel Movements 0 0 General: Alert Lungs: Clear to Auscultation Heart: Exam Unremarkable Abdomen: Soft, Appropriately tender, Non-distended SURGICAL WOUND : Wound General Appearence: Steri Strips, Intact, Well Approximated, No Erythema, No Discharge, No Inflammatory Changes Extremities: Thigh&Calf Soft/Nontender Neuro: Other (gross neuro exam consistent with developmental delay) Result Diagram: 12/21/16 0825 12/19/16 1216 Assessment & Plan Impression Primary Diagnoses: 1. Ingested foreign body with intractable vomiting. 2. Status post laparoscopic exploration with gastrotomy, removal of foreign body & closure of gastrotomy: POD # 3 convalescing appropriately authorizing disposition home with consulting Hospitalist's confirmed medical clearance. Caregiving mother has verbalized understanding all necessary postoperative care instructions. 3. Chronic constipation - continue home treatment ethylene glycol & docusate sodium as needed. Other Medical Conditions: History of gastric ulcers Severe developmental delay History of Atrial septal defect status post surgical repair History of seizure disorder History of NG tube Problems: Plan 1. Full liquid diet for 10 days. RN will give dietary list. 2. APAP for usual & oxycodone for severe breakthrough pain when necessary. 3. Ambulate 3 times a day. 4. Follow-up with established neurologist outpatient specialist regarding seizure medications per Medical Hospitalist as scheduled or needed. 5. RN to arrange follow-up & provide contact information for outpatient general surgery follow-up in one week. 6. RN to give & explain written postoperative prescriptions & care instructions prior to discharge. 7. Discharge home with mother if patient meets specific department protocols for disposition. 8. Continue home treatment for chronic constipation. 9. Follow-up with PCP as scheduled or needed. VTE Prophylaxis: SCDs Resuscitation Status: CPR: Attempt Resuscitation copies to: Betzy Gilliam MD, Scott PA-C Dec 22, 2016 09:18
[2016-12-22] MEDS: CLOBAZAM 10 MG PO SCH (09:24)
[2016-12-22] MEDS: LEVETIRACETAM 500 MG PO SCH (09:25)
--- NOTE | 2016-12-22 09:25 | PCM.PNMED ---
Subjective Date of Service Dec 22, 2016 Subjective No overnight events. Exam Vital Signs Vital Sign - Last Date Time Temp Pulse Resp B/P Pulse Ox O2 Delivery O2 Flow Rate FiO2 12/22/16 06:30 36.6 12/22/16 04:08 69 16 104/67 94 Room Air Intake and Output 12/21/16 12/21/16 12/22/16 Cumulative From/Thru 15:00 23:00 07:00 12/19/16 10:33 - 12/22/16 06:48 Intake Total 300 ml 3373 ml 820 ml 75308 ml Output Total 0 ml 10 ml Balance 300 ml 3373 ml 820 ml 54024 ml Intake Oral 300 ml 3373 ml 820 ml 6573 ml IV Total 4380 ml Output Urine Total 0 ml 0 ml Estimated Blood Loss 10 ml # Voids 0 5 3 16 # Bowel Movements 0 0 0 0 Exam General: No Acute Distress, Other (Awake) Head: Normal Eyes: PERRLA, EOMI Mouth: Lips, Mouth Normal Chest & Lungs: Chest Wall Normal, Clear to auscultation & percussion Breasts: Normal Cardiovascular: Exam Unremarkable Abdomen: Non-tender, Non-distended Musculoskeletal: Unremarkable Extremities: No cyanosis/clubbing/edma bilat, Normal bilaterally Neurological: Other (No focal deficit. Unable to cooperate with full neuro exam secondary to patient mental status IVs and Medications Medications Reviewed: Medications were reviewed in detail Lab and Diagnostics Result Diagram: 12/21/16 0825 12/19/16 1216 Assessment & Plan Mr. Bong Alonso is a 31 year old gentleman with a past medical history significant for Downs syndrome, Epilepsy, Chronic constipation, report of prior gastric ulcers via EGD in 2013 at [facility], ASD repair in 2006, Esophageal dysmotility with recurrent episodes of self resolving food impactions , who presents to the ED via EMS with concerns of non-resolving esophageal impaction and concerns of under-dosing of anti-seizure medications. Seizure disorder, chronic, present on admission - Diet advanced per Surgery, tolerating po meds, - Confirmed Sz med doses, Mother has requested to use their own medications which is acceptable. Resumed po Keppra XR (Pt own med), PO Topomax, Onfi (Pt own med), and Lamotrigine. - Stable for discharge form medicine perspective. Follow up with Neurology as outpatient to address mother's concerns regarding dosing of medications. Would not recommend changes to doses upon discharge as patient has been seizure free during admit. Esophageal dysmotility, chronic, active- This episodes of dysphagia likely due to foreign body which has now been removed. Diet per Surgery. Continue to monitor. Resuscitation Status: CPR: Attempt Resuscitation Sourav Rios MD Dec 22, 2016 09:25
[2016-12-22] MEDS: lamoTRIgine 25 mg Tablet PO SCH (09:26)
--- NOTE | 2016-12-22 09:51 | PCM.DISURG ---
Surgical Discharge Instruction Date of Service Dec 22, 2016 Dates of Hospitalization Date of Hospital Admission Dec 19, 2016 at 22:05 Providers Admitting Physician: Arsen Carpenter MD Primary Care Physician: Steven Jones MD Attending Physician: Arsen Carpenter MD Discharge Diagnosis Discharge Diagnosis Primary Diagnoses: 1. Ingested foreign body with intractable vomiting. 2. Status post laparoscopic exploration with gastrotomy, removal of foreign body & closure of gastrotomy. 3. Chronic constipation Other Medical Conditions: History of gastric ulcers Severe developmental delay History of Atrial septal defect status post surgical repair History of seizure disorder History of NG tube Post Operative diagnosis Intragastric foreign body Diet Discharge Diet: Other (Full Liquid Diet for 10 days.) Activity Discharge Activity-General: Activity as pain allows, Restrict lifting to no greater than (10 lbs) Dressing and Incisional Care Dressing Care: Allow Steri Stripes to fall off (or remove in 24 hours) Hygiene: May shower, DO NOT soak incision under water Additional Instructions Additional Instructions 1. Please follow home treatment plan for chronic constipation. 2. Use [id number] Tylenol as needed or oxycodone for severe breakthrough pain Follow Up Plan Follow Up Plan Please follow-up with established PCP & Neurologist as scheduled or needed. Follow-up Provider (F9): Acosta Rivera PA-C Follow-up appointment: Weeks (1) Call your provider for: Fever, Chills, Shortness of breath, Increasing abdominal pain, Nausea, Vomiting, Wound redness, Increasing wound pain, Warmth to touch, Discharge @ incision, pus discharge Lorenzo Lopez PA-C Dec 22, 2016 09:51
[2016-12-22] MEDS ORDERED: OXYC-530 PO (09:53)
--- NOTE | 2016-12-22 10:04 | PCM.DC.SUR ---
Discharge Summary Date of Service: Dec 22, 2016 Date of Hospital Admission: Dec 19, 2016 at 22:05 Date of Operation(s): December 19, 2016 Date of Discharge: December 22, 2016 Diagnosis at Time of Discharge Primary Diagnoses: 1. Ingested foreign body with intractable vomiting. 2. Status post laparoscopic exploration with gastrotomy, removal of foreign body & closure of gastrotomy. 3. Chronic constipation Other Medical & Surgical Conditions: History of gastric ulcers Severe developmental delay History of Atrial septal defect status post surgical repair History of seizure disorder History of NG tube Problems: Operation Laparoscopic exploration with gastrotomy, removal of foreign body & closure of gastrotomy Brief History and Physical: The patient is seen in the endoscopy suite with Dr. Swanson. History Dr. Carpenter obtained is that he has a history of pica and swallowing foreign bodies. He has been vomiting for at least a day and Dr. Swanson has removed a very firm plastic foreign body from the esophagus. There is a residual foreign body in the stomach that appears too large and noncompressible to safely remove from the esophagus. We have had a discussion in the endoscopy suite regarding the best way to approach this, and it would seem a laparoscopic exploration with gastrotomy and foreign body removal is in the patient's best interest. Consultants: Hospitalist Dr. Rios [facility] Course: The patient was admitted with a history, presentation, & workup consistent with the above listed diagnoses & underwent the above-mentioned surgical procedure without complication. See operative report for details of the procedure. After surgery the patient convalesced appropriately. The patient's postsurgical recovery was uneventful. Bowel function returned during the patient's hospital course. The patient was stable for discharge on postoperative day #3. At the time of discharge the patient was afebrile, voiding without difficulty, having signs of bowel function, tolerating a full liquid diet without nausea or vomiting, minimal pain was controlled with oral analgesics, the patient was ambulating in the hallway within normal limits, with clean, dry, & intact surgical wounds without signs of infection, inflammation, &/or hematoma. We discussed with the Patient's Caregiver Mother who verbalized understanding all of the postoperative care & medication instructions, follow-up, and when to seek immediate medical attention for her son. We also discussed follow-up with her established PCP & Neurologist as scheduled or needed. The mother was given written postoperative instructions & prescriptions. All questions were answered. The patient was discharged with medical clearance from Hospitalist Dr. Rios meeting all department standards &/or protocols for appropriate disposition home with his mother. Disposition: Home in stable condition on postoperative day #3 Follow-up Plan: 1. Follow up in outpatient general surgery clinic in 1 week. 2. Follow-up with PCP & Neurologist as scheduled or needed. Clobazam (Onfi) 10 Mg Tablet 15 MG PO HS (Reported) Clobazam (Onfi) 10 Mg Tablet 10 MG PO am (Reported) Docusate Sodium (Colace) 100 Mg Capsule 100 MG PO every other day PRN PRN For Constipation (Reported) Lamotrigine (Lamotrigine) 25 Mg Tablet 50 MG PO BID (Reported) Levetiracetam ER (Keppra XR) 500 Mg Tablet 1,500 MG PO BID (Reported) Multivit with Calcium,Iron,Min (Maximum Daily Multivitamin) 1 Each Tablet 1 EACH PO daily (Reported) Polyethylene Glycol 3350 (Miralax) 17 Gm Powd.pack 17 GM PO every other day ( Reported) Topiramate (Topamax) 200 Mg Tablet 200 MG PO BID (Reported) oxyCODONE (oxyCODONE) 5 Mg Tablet 5 MG PO DAILY PRN PRN For Severe Pain Discharge Medications: See above copies to: Betzy Gilliam MD, Scott PA-C Dec 22, 2016 10:04
--- NOTE | 2016-12-22 10:58 | NUR ---
Social Work: Discharge/Multidisciplinary Rounds D: EMR reviewed. Pt is on day 3 of hospitalization. Pt discussed in multidisciplinary rounds this morning and is medically stable for discharge home today. Pt's mother is in room and will provide pt transport home today. SW discussed potential discharge needs during multidisciplinary rounds, no needs identified. SW requested [facility] to fax H&P to pt's DDA Froilan Ayon at [phone]. [facility] agreeable. No other SW needs identified, no MD orders received. A: Pt who is total assist at baseline, nonverbal, and is not capable of self-care. P: Pt to discharge home with mother to transport via POV today. No SW needs identified, no MD orders received. Pt's mother is ready to take pt home and will continue care for pt. SW requested [facility] to fax H&P to pt's DDA Froilan Ayon at [phone]. [facility] agreeable. DAVIS Dooley
--- NOTE | 2016-12-22 13:18 | NUR ---
Faxed clinicals to DDA CM per FIELD REPORTER
--- NOTE | 2016-12-22 14:30 | NUR ---
DISCHARGE Via FELDT scale patient pain level is 0/10. Tolerating full liquid. No nausea noted. No emesis noted. Denies SOB. Patient has been ambulating in the hallway with his mother/sitter. Tolerated activity well. Steri strips in his abdomen is CDI. Discharge instructions, care notes and prescription was given to his mother, who is his primary complex care nurse. Marita, patients mother verbalized understanding. Discharged to home with his mother and all his personal belongings. Home meds was given to the mother. (Copy of D/C is in the chart).
== END 2016-12-22 14:15 | disposition home or self-care (01) | DRG 327 ==
LOC: SED 10:25 → END 15:49 → OSC 22:05
PROVIDERS: ADMIT Surgery; ATTEND Surgery
PROC: 0D748ZZ Dilation of Esophagogastric Junction, Via Natural or Artificial Opening Endoscopic (ICD-10-PCS; 2016-12-19)
PROC: 0DC64ZZ Extirpation of Matter from Stomach, Percutaneous Endoscopic Approach (ICD-10-PCS; principal; 2016-12-19 16:15)
PROC: 0DC58ZZ Extirpation of Matter from Esophagus, Via Natural or Artificial Opening Endoscopic (ICD-10-PCS; 2016-12-19 16:15)
DX: T18.198A Other foreign object in esophagus causing other injury, initial encounter (principal); G40.812 Lennox-Gastaut syndrome, not intractable, without status epilepticus; T18.2XXA Foreign body in stomach, initial encounter; Q90.9 Down syndrome, unspecified; F79 Unspecified intellectual disabilities; K22.4 Dyskinesia of esophagus; K59.09 Other constipation